=== PATIENT | male | born 1940 | race Caucasian/White ===

== ENCOUNTER 2020-05-01 00:31 | Emergency (ER) | payer OTHER ==
[2020-05-01 00:38] VITALS: RESP 18
[2020-05-01] MEDS ORDERED: DIPH,PERTUS(ACELL)TETVAC-LF 0.5 ML VIAL IM ONE (00:44)
--- NOTE | 2020-05-01 01:00 | CT ---
EXAM: CT Head Without Intravenous Contrast CLINICAL HISTORY: ITS.REASON CT Reason: pain, trauma TECHNIQUE: Axial computed tomography images of the head/brain without intravenous contrast. CTDI is 49.27 mGy and DLP is 1039.4 mGy-cm. This CT exam was performed using one or more of the following dose reduction techniques: automated exposure control, adjustment of the mA and/or kV according to patient size, and/or use of iterative reconstruction technique. COMPARISON: none available FINDINGS: Brain: No acute intracranial hemorrhage. Nunez-white differentiation is preserved throughout the cerebral hemispheres. Posterior fossa is symmetric. There is patchy periventricular white matter hypoattenuation which is nonspecific most commonly seen in the setting of small vessel ischemic disease. There is moderate intracranial internal carotid artery calcifications. Ventricles: Unremarkable. No ventriculomegaly. Bones/joints: Unremarkable. No acute fracture. Soft tissues: Right frontal scalp soft tissue swelling. Sinuses: Unremarkable as visualized. No acute sinusitis. Mastoid air cells: Unremarkable as visualized. No mastoid effusion. IMPRESSION: 1. Right frontal scalp swelling with no underlying calvarial fracture. No skull base fractures. 2. No acute intracranial hemorrhage, herniation, or hydrocephalus.
[2020-05-01 01:28] VITALS: BP 124/74; PULSE 99
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
[2020-05-01 01:51] VITALS: TEMP 98.8
== END 2020-05-01 01:50 | disposition home or self-care (01) ==
LOC: EC 00:31
DX: S01.01XA Laceration without foreign body of scalp, initial encounter (principal); T74.11XA Adult physical abuse, confirmed, initial encounter; I10 Essential (primary) hypertension; Z79.01 Long term (current) use of anticoagulants; Z98.890 Other specified postprocedural states; Z23 Encounter for immunization; Z87.891 Personal history of nicotine dependence; Y04.0XXA Assault by unarmed brawl or fight, initial encounter; Y07.9 Unspecified perpetrator of maltreatment and neglect
CPT/HCPCS: 12001; 70450; 90471; 90715; 99285